=== PATIENT | female | born 1990 ===

== ENCOUNTER 2018-07-25 08:23 | Day surgery (SDC) | payer BC ==
[2018-07-18 10:14] VITALS: BMI 33.6
[2018-07-25] MEDS ORDERED: Lactated Ringer's 1,000 ML IV ONE (09:00)
[2018-07-25] MEDS ORDERED: Succinylcholine 200 mg/10 ml Inj IV ONE (09:47)
[2018-07-25] MEDS ORDERED: Propofol 10 mg/ml Inj (20 ML) ONE (09:47)
[2018-07-25] MEDS ORDERED: ePHEDrine 50 mg/ml Inj ONE (09:47)
[2018-07-25] MEDS ORDERED: Midazolam 2 MG/2 ML VIAL ONE (09:47)
[2018-07-25] MEDS ORDERED: Dexamethasone 4 mg/1 ml ONE (10:43)
[2018-07-25] MEDS ORDERED: Lactated Ringer's 1,000 ML IV SCH (11:45)
[2018-07-25] MEDS ORDERED: HYDROmorphone 0.5 mg/0.5 ml ISec ONE (11:52)
[2018-07-25 11:56] VITALS: RESP 18; O2SAT 100
[2018-07-25 14:35] VITALS: BP 106/72; PULSE 72; TEMP 98
--- NOTE | 2018-07-26 01:19 | OP ---
PROCEDURE DATE: 07/25/2018 PREOPERATIVE DIAGNOSIS: Small fibroid in the lower uterine segment. POSTOPERATIVE DIAGNOSIS: Small fibroid in the lower uterine segment, pending pathology. SURGEON: Boby John MD ANESTHESIA: Jagruti Boo MD PROCEDURES: Hysteroscopy, MyoSure, dilatation and curettage. FINDINGS: Small amount of tissue and visualization. DESCRIPTION OF PROCEDURE: With the patient in the dorsal lithotomy position and under general anesthesia, the patient was prepped and draped in usual sterile manner. A straight catheter was used to empty the bladder after which the uterus was grasped at the anterior cervix and dilated. Following this, the hysteroscope was put into place and small amount of tissue was visualized. The MyoSure was then put into place, and then the piece of tissue was removed maintaining hemostasis. After this was done, Myosure; the hysteroscope was removed and small amount of curetting was done obtaining further amount of tissue. After this, the cervix was observed and no bleeding. Hemostasis was maintained. Blood loss was minimal. The patient tolerated the procedure well and was in satisfactory condition on the way to the recovery room. Boby John MD
== END 2018-07-25 14:35 | disposition home or self-care (01) ==
LOC: H.OPSURG 08:23
PROVIDERS: ATTEND Specialist
DX: D25.2 Subserosal leiomyoma of uterus (principal); F41.9 Anxiety disorder, unspecified; E66.9 Obesity, unspecified; F41.0 Panic disorder [episodic paroxysmal anxiety]
CPT/HCPCS: 58558; 88305; J0330; J1100; J1170; J1885; J2001; J2250; J2405; J2704; J3010; J7030; J7120